=== PATIENT | female | born 1995 | race Caucasian/White ===

== ENCOUNTER 2019-04-24 08:05 | Emergency (ER) | payer BC ==
[2019-04-24 08:42] VITALS: BP 118/88
--- NOTE | 2019-04-24 08:52 | UC ---
Eye Complaint HPI - HPI Summary HPI Summary: 23-year-old woman comes in with a chief complaint of left eye drainage crusting and injection. Started yesterday. She has been cleaning and off which does help temporarily however over all is getting worse. Does not wear contacts no known trauma. She reports itchiness but not complaining of any pain no fevers no upper respiratory tract infection symptoms. She did have a friend who had georgina recently. - History of Current Complaint Chief Complaint: UCEye Stated Complaint: LEFT EYE COMPLAINT Time Seen by Provider: 04/24/19 08:46 Hx Last Menstrual Period: 04/22/19 Pain Intensity: 5 - Allergies/Home Medications Allergies/Adverse Reactions: Allergies Allergy/AdvReac Type Severity Reaction Status Date / Time No Known Allergies Allergy Verified 04/24/19 08:29 Home Medications: Home Medications Copper (Iud) [Paragard IUD] 1 unit IU 04/24/19 [History] Otc Bache Eye Relief PRN 04/24/19 [History] Steroid ? Name PRN 04/24/19 [History] PMH/Surg Hx/FS Hx/Imm Hx Previously Healthy: Yes - Surgical History Surgical History: Yes Surgery Procedure, Year, and Place: cholycystectomy. Right ovary and benign tumor removal. appendectomy. T&A - Family History Known Family History: Positive: Non-Contributory - Social History Alcohol Use: Weekly Substance Use Type: None Smoking Status (MU): Never Smoked Tobacco Household Exposure Type: Cigarettes Review of Systems All Other Systems Reviewed And Are Negative: Yes Constitutional: Positive: Negative Skin: Positive: Negative Eyes: Positive: Drainage, Eye Redness ENT: Positive: Negative Respiratory: Positive: Negative Cardiovascular: Positive: Negative Gastrointestinal: Positive: Negative Motor: Positive: Negative Neurovascular: Positive: Negative Musculoskeletal: Positive: Negative Neurological: Positive: Negative Psychological: Positive: Negative Is Patient Immunocompromised?: No Physical Exam Triage Information Reviewed: Yes Appearance: Well-Appearing, No Pain Distress, Well-Nourished Vital Signs: Initial Vital Signs Temp 98 F 04/24/19 08:32 Pulse 58 04/24/19 08:32 Resp 16 04/24/19 08:32 BP 118/88 04/24/19 08:32 Pulse Ox 99 04/24/19 08:32 Vital Signs Reviewed: Yes Eyes: Positive: Conjunctiva Inflamed - LEFT, Discharge - LEFT, Other: - PERRLA EOMI no photophobia. ENT: Negative: Nasal drainage Neck: Positive: Supple Respiratory: Positive: No respiratory distress Musculoskeletal: Positive: Strength Intact, ROM Intact Neurological: Positive: Alert, Muscle Tone Normal Psychological: Positive: Age Appropriate Behavior Skin Exam: Normal Eye Complaint Course/Dx - Differential Dx/Diagnosis Provider Diagnosis: Left conjunctivitis Discharge ED - Sign-Out/Discharge Documenting (check all that apply): Patient Departure All imaging exams completed and their final reports reviewed: No Studies - Discharge Plan Condition: Stable Disposition: HOME Prescriptions: Tobramycin 0.3% OPHTH.LULÚ* 1 drop LEFT EYE Q4H #1 btl Patient Education Materials: Conjunctivitis (ED) Forms: *School Release Referrals: [facility] [Outside] Additional Instructions: FOLLOW UP WITH YOUR DOCTOR IF NOT COMPLETELY IMPROVED. GET REEVALUATED IF NOT IMPROVING OR WORSE OR ANY QUESTIONS OR CONCERNS. - Billing Disposition and Condition Condition: STABLE Disposition: Home
== END 2019-04-24 08:58 | disposition home or self-care (01) ==
LOC: UCCORT 08:05
DX: H10.9 Unspecified conjunctivitis (principal)
CPT/HCPCS: 99202; G0463